=== PATIENT | female | born 1985 | race African-American/Black ===

== ENCOUNTER 2016-10-06 06:18 | Inpatient (IN) | payer MEDICAID, OTHER ==
[~2016-10-06 06:18] MED LIST: BOOSTRIX IM ONE
[2016-10-06] MEDS ORDERED: SUBLIMAZE ONE (06:55)
[2016-10-06] MEDS ORDERED: POLYCILLIN/NS 2 GM/100 ML 2 GM/100 ML BAG IV ONE ×2 (06:55→07:21)
[2016-10-06] MEDS ORDERED: LACTATED RINGERS 1,000 ML ONE (06:55)
[2016-10-06] MEDS ORDERED: SUBLIMAZE IV PRN (07:22)
[2016-10-06 07:40] LABS: Hematocrit 36.7 % (30.3-42.9); Hemoglobin 12.1 gm/dl (10.1-14.3); Mean Corpuscular HGB Conc 33 % (30-34); Mean Corpuscular Hemoglobin 27 pg (28-32); Mean Corpuscular Volume 82 fl (79-97); Platelet Count 255 K/mm3 (140-440); Red Blood Count 4.46 M/mm3 (3.65-5.03); Red Cell Distribution Width 15.9 % (13.2-15.2); White Blood Count 7.6 K/mm3 (4.5-11.0)
[2016-10-06] MEDS: PITOCin/NS 30 UNIT/500ML 30,000 MILLIUNITS/500 ML BAG IV SCH ×2 (07:58→08:35)
[2016-10-06] MEDS ORDERED: PITOCin/NS 20 UNIT/1000ML DRIP 20,000 MILLIUNITS/1,000 ML BAG IV SCH (08:00)
[2016-10-06] MEDS ORDERED: LACTATED RINGERS 1,000 ML IV SCH ×2 (08:00→09:00)
--- NOTE | 2016-10-06 08:21 | History and Physical Report ---
History of Present Illness Date of examination: 10/06/16 Date of admission: 10/06/16 06:29 Chief complaint: 31 yo [id number] @ 38.1 weeks in for SROM and Active labor. History of present illness: 31 yo at 38.1 with history of care since 11 weeks at [facility]. GBS negative. SROM at 0500 this AM with clear fluids. She was admitted in active labor at 6/80/-2. Past History Past Medical History: thyroid disease (disorder with prior ), other ( PCOS) Past Surgical History: no surgical history COMPLIANCE NURSE History: abnormal PAP smear Family/Genetic History: diabetes, hypertension Social history: - Obstetrical History Expected Date of Delivery: 10/19/16 Actual Gestation: 38 Week(s) 3 Day(s) : 3 Para: 1 Hx # Term Pregnancies: 1 Number of Pregnancies: 0 Spontaneous Abortions: 1 Induced : 0 Number of Living Children: 1 Medications and Allergies Allergies Allergy/AdvReac Type Severity Reaction Status Date / Time No Known Allergies Allergy Unverified 12/08/14 14:21 Home Medications Medication Instructions Recorded Confirmed Last Taken Type Aspirin [Aspirin TAB] 325 mg PO ONCE 12/08/14 10/06/16 12/08/14 History Active Meds: Active Medications Fentanyl (Sublimaze) 100 mcg IV ONCE PRN PRN Reason: Pain, Moderate (4-6) Ampicillin Sodium (Polycillin/Ns 2 Gm/100 Ml) 2 gm in 100 mls @ 100 mls/hr IV ONCE ONE Stop: 10/06/16 08:20 Lactated Ringer's (Lactated Ringers) 1,000 mls @ 125 mls/hr IV DIRECT YODIT Oxytocin/Sodium Chloride (Pitocin/Ns 20 Unit/1000ml Drip) 20,000 milliunits in 1,000 mls @ 125 mls/hr IV DIRECT YODIT Oxytocin/Sodium Chloride (Pitocin/Ns 30 Unit/500ml) 30,000 milliunits in 500 mls @ 2 mls/hr IV TITR YODIT; 2 MILLIUNITS/MIN PRN Reason: Protocol Last Admin: 10/06/16 07:58 Dose: 2 milliunits/min, 2 mls/hr Review of Systems All systems: negative - Vital Signs Vital signs: Vital Signs Pulse Pulse Ox 90 96 10/06/16 06:43 02/21/17 06:43 Temp Pulse Resp BP Pulse Ox 97.7 F 91 H 18 113/74 95 10/06/16 07:00 10/06/16 08:12 10/06/16 07:18 10/06/16 07:25 10/06/16 08:12 - Physical Exam Cardiovascular: Regular rate Lungs: Positive: Normal air movement Abdomen: Positive: soft Genitourinary (Female): Positive: normal external genitalia Vagina: Positive: normal moisture Uterus: Positive: enlarged Extremities: Positive: normal Deep Tendon Reflex Grade: Normal +2 - Obstetrical FHR: category 1 Uterine Contraction Monitor Mode: External Cervical Dilatation: 6 (per RN) Cervical Effacement Percentage: 80 station: -2 Uterine Contraction Frequency (min): q2-4 Uterine Contraction Pattern: Regular Uterine Tone Measurement Phase: Resting Uterine Contraction Intensity: Moderate Results Result Diagrams: 10/06/16 22:57 Abnormal lab results 10/06/16 Range/Units 06:40 MCH 27 L (28-32) pg RDW 15.9 H (13.2-15.2) % All other labs normal. Assessment and Plan A: 31 yo at 38.1 weeks Category 1 FHT Pain controlled with IV pain medications, declines epidural GBS negative P: Routine labor management Continuous monitoring Consulted with Dr. Timothy DONALDSON
[2016-10-06] MEDS ORDERED: BRETHINE SUB-Q PRN (08:29)
[2016-10-06] MEDS ORDERED: BRETHINE IVP PRN (08:29)
[2016-10-06] MEDS ORDERED: PITOCin/NS 30 UNIT/500ML 30 UNIT/500 ML BAG IV SCH ×2 (09:00)
[2016-10-06] MEDS ORDERED: ZOFRAN IV PRN (09:00)
[2016-10-06] MEDS ORDERED: MINERAL OIL PO PRN (09:00)
[2016-10-06] MEDS ORDERED: ePHEDrine SULFATE IV PRN (09:00)
[2016-10-06] MEDS ORDERED: XYLOCAINE 2% INFILTRATI ONE ×2 (09:25→14:05)
--- NOTE | 2016-10-06 10:01 | Procedure Note ---
OB Delivery Note - Delivery Date of Delivery: 10/06/16 (0926) Surgeon: UMU FLEMING Estimated blood loss: 300cc - Vaginal Delivery position: OA (compounded with posterior hand) Intrapartum events: none, shoulder dystocia (less than one minute, Bradley, Suprapubic pressure and delivery of posterior (left) arm) Delivery induction: none Delivery augmentation: pitocin Delivery monitor: external FHT, external uterine Route of delivery: Delivery placenta: spontaneous Delivery cord: nuchal cord Delivery laceration: 2nd degree Delivery repair: vicryl Anesthesia: local Delivery comments: Baby girl Vo was delivered on 10/06/2016 @0926 in an unmedicated delivery. Shoulder dystocia that resolved in less than 1 minute with Bradley, Suprapubic pressure and delivery of posterior arm. Baby responded well to dyring and stimulation and was placed on mom's chest. Cord was clamped and cut at 3 minutes of life. 2nd degree laceration was repaired with 3.0 vicryl. Placenta delivered cervantes side out. Fundus is firm and bleeding is scant. Total EBL was 300cc. Baby weighed 7#2oz and had apgars of 8/9. - A at 1 minute: 8 at 5 minutes: 9 Gender: Female
[2016-10-06] MEDS ORDERED: TUCKS PAD TP PRN (10:03)
[2016-10-06] MEDS ORDERED: PHENERGAN PR PRN (10:30)
[2016-10-06] MEDS ORDERED: DERMOPLAST TP PRN (10:30)
[2016-10-06] MEDS ORDERED: DULCOLAX PR PRN (10:30)
[2016-10-06] MEDS ORDERED: BENADRYL PO PRN (10:30)
[2016-10-06] MEDS ORDERED: TYLENOL PO PRN (10:30)
[2016-10-06] MEDS ORDERED: LANSINOH TP PRN (10:30)
[2016-10-06] MEDS ORDERED: SODIUM CHLORIDE FLUSH SYRINGE 10 ML IV NR (11:00)
[2016-10-06] MEDS: MOTRIN PO SCH ×2 (19:05→23:00)
[2016-10-06] MEDS ORDERED: MILK OF MAGNESIA PO PRN (22:00)
[2016-10-06 23:30] LABS: Hematocrit 34.5 % (30.3-42.9); Hemoglobin 11.1 gm/dl (10.1-14.3)
[2016-10-07] MEDS: MOTRIN PO SCH ×5 (05:00→23:47)
[2016-10-07] MEDS ORDERED: BOOSTRIX IM ONE (06:00)
--- NOTE | 2016-10-07 10:48 | Progress Note ---
Assessment and Plan A: PP Day #1 Stable P: Follow routine Orders D/C home in the AM RTO in 6 Weeks Subjective - Subjective Date of service: 10/07/16 Patient reports: appetite normal, voiding normally, pain well controlled, flatus , ambulating normally [place]: doing well Objective - Vital Signs Latest vital signs: Vital Signs Temp Pulse Pulse Resp BP BP 10/07/16 09:55 97.9 F 79 20 95/55 10/07/16 00:00 98 F 80 18 116/68 10/06/16 16:18 98.9 F 86 18 92/54 10/06/16 10:55 98.3 F 82 20 109/70 Intake and Output 10/06/16 10/07/16 10/07/16 22:59 06:59 14:59 Intake Total 120 360 120 Output Total 900 400 600 Balance -780 -40 -480 Intake: Oral 120 120 120 Intake, Free Water 240 Output: Urine 900 400 600 Void 900 400 600 Other: Total, Intake Amount 120 120 120 Total, Output Amount 900 400 600 Voiding Method Toilet # Voids Void 1 - Exam Breasts: Present: normal Cardiovascular: Present: Regular rate Lungs: Present: Clear to auscultation, Normal air movement Abdomen: Present: normal appearance, soft, normal bowel sounds Uterus: Present: normal, firm, fundal height below umbilicus Extremities: Present: normal
--- NOTE | 2016-10-07 10:49 | Discharge Summary ---
Providers - Providers Date of Admission: 10/06/16 06:29 Date of discharge: 10/08/16 Attending physician: SOFY KELLEY MD Primary care physician: SOFY KELLEY MD Hospitalization Reason for admission: active labor Delivery: Episiotomy: none Laceration: 2nd degree Other procedures: none complications: none Discharge diagnosis: IUP at term delivered baby: female Condition at discharge: Good Disposition: DISCHARGED TO HOME OR SELFCARE Plan - Provider Discharge Summary Activity: routine, no sex for 6 weeks, no heavy lifting 4 weeks, no strenuous exercise Diet: routine Instructions: routine Additional instructions: [] Smoking cessation referral if applicable(refer to patient education folder for contact #) [] Refer to [facility] Booklet Call your doctor immediately for: * Fever > 100.5 * Heavy vaginal bleeding ( >1 pad per hour) * Severe persistent headache * Shortness of breath * Reddened, hot, painful area to leg or breast * Drainage or odor from incision. * Keep incision clean and dry at all times and follow doctor's instructions regarding bathing/showering - Follow up plan Follow up: UMU FLEMING CNM [Advanced Practice Nurse] - 6 Weeks Forms: [facility] Discharge Summary, Discharge Signature Page
[2016-10-07] MEDS ORDERED: FLUARIX QUAD 2016-2017(36 MOS+) IM ONE (12:00)
[2016-10-08] MEDS: MOTRIN PO SCH (05:25)
[2016-10-08 13:21] VITALS: BP 110/70
== END 2016-10-08 13:00 | disposition home or self-care (01) | DRG 775 ==
LOC: TRG 06:18 → LD 06:29 → OB 10:53
PROVIDERS: ADMIT Obstetrics & Gynecology; ATTEND Obstetrics & Gynecology
PROC: 0KQM0ZZ Repair Perineum Muscle, Open Approach (ICD-10-PCS; principal; 2016-10-06)
PROC: 10E0XZZ Delivery of Products of Conception, External Approach (ICD-10-PCS; 2016-10-06)
DX: O66.0 Obstructed labor due to shoulder dystocia (principal); O69.81X0 Labor and delivery complicated by cord around neck, without compression, not applicable or unspecified; O70.1 Second degree perineal laceration during delivery; Z37.0 Single live birth; Z3A.38 38 weeks gestation of pregnancy; Z83.3 Family history of diabetes mellitus; Z82.49 Family history of ischemic heart disease and other diseases of the circulatory system
CPT/HCPCS: 36415; 85014; 85018; 85027; 86850; 86900; 86901; 90471; 90686; 90715; G0008; J0290; J2590; J3010; J7120

== ENCOUNTER 2018-08-27 14:06 | Emergency (ER) | payer MEDICAID | END 2018-08-27 15:45 | disposition left against medical advice (07) | LOC: ED 14:06 ==